=== PATIENT | female | born 1995 | race African-American/Black ===

== ENCOUNTER 2017-07-01 00:52 | Emergency (ER) | payer MEDICAID ==
[~2017-07-01] VITALS: Ht 165.1 cm; Wt 109.0 kg
[2017-07-01] MEDS ORDERED: CYCLOBENZAPRINE 10MG TABLET PO ONE (06:30)
[2017-07-01] MEDS ORDERED: KETOROLAC 60MG/2ML VIAL IM ONE (06:30)
[2017-07-01 06:40] VITALS: BP 122/78
== END 2017-07-01 07:21 | disposition home or self-care (01) ==
LOC: ER 00:52
DX: M54.2 Cervicalgia (principal); M54.6 Pain in thoracic spine; M25.562 Pain in left knee; M25.561 Pain in right knee; F12.10 Cannabis abuse, uncomplicated; Z88.0 Allergy status to penicillin; V89.2XXA Person injured in unspecified motor-vehicle accident, traffic, initial encounter; Y93.89 Activity, other specified; Y92.89 Other specified places as the place of occurrence of the external cause; Y99.8 Other external cause status
CPT/HCPCS: 81025; 96372; 99283; J1885

== ENCOUNTER 2018-04-05 19:39 | Emergency (ER) | payer MEDICAID ==
[~2018-04-05] VITALS: Ht 165.1 cm; Wt 92.0 kg
[2018-04-05] MEDS ORDERED: KETOROLAC 60MG/2ML VIAL IM ONE (21:00)
[2018-04-05 23:56] LABS: CLARITY URINE CLOUDY (CLEAR); COLOR URINE YELLOW (YELLOW); KETONES URINE TRACE (NEGATIVE); LEUKOCYTE ESTERASE URINE 1+ (NEGATIVE); NITRITE URINE NEGATIVE (NEGATIVE); OCCULT BLOOD URINE NEGATIVE (NEGATIVE); PROTEIN URINE TRACE (NEGATIVE); SPECIFIC GRAVITY URINE 1.035 (1.005-1.030)
[2018-04-06 00:59] VITALS: BP 119/90
== END 2018-04-06 01:27 | disposition home or self-care (01) ==
LOC: ER 19:39
DX: R10.9 Unspecified abdominal pain (principal); V43.62XA Car passenger injured in collision with other type car in traffic accident, initial encounter; Y93.89 Activity, other specified; Y92.89 Other specified places as the place of occurrence of the external cause; Y99.8 Other external cause status; Z88.0 Allergy status to penicillin
CPT/HCPCS: 71101; 74176; 81003; 81025; 96372; 99284; J1885

== ENCOUNTER 2021-03-13 19:28 | Emergency (ER) | payer MEDICAID ==
[~2021-03-13] VITALS: Ht 170.2 cm; Wt 105.0 kg
[2021-03-13 19:39] VITALS: BP 133/74
== END 2021-03-13 21:50 | disposition home or self-care (01) ==
LOC: ER 19:28
DX: U07.1 COVID-19 (principal); Z71.89 Other specified counseling
CPT/HCPCS: 99283